=== PATIENT | female | born 1975 | race African-American/Black ===

== ENCOUNTER 2024-01-24 08:46 | Emergency (ER) | payer MEDICAID ==
[~2024-01-24] VITALS: Ht 165.1 cm; Wt 90.0 kg
[2024-01-24 08:48] VITALS: O2SAT 98
[2024-01-24] MEDS: IBUPROFEN 400MG TABLET PO ONE (09:19)
[2024-01-24] MEDS: ACETAMINOPHEN 325MG TABLET PO ONE (09:19)
[2024-01-24] MEDS ORDERED: TOPUD PO (10:03)
[2024-01-24 12:46] VITALS: BP 130/78; PULSE 74; RESP 16; TEMP 37.00296; O2SAT 99
== END 2024-01-24 12:49 | disposition home or self-care (01) ==
LOC: ER 08:46
DX: M25.562 Pain in left knee (principal); J45.909 Unspecified asthma, uncomplicated; E11.9 Type 2 diabetes mellitus without complications; Z98.890 Other specified postprocedural states
CPT/HCPCS: 73562; 99283